=== PATIENT | female | born 1970 | race American Indian/Alaskan Native ===

== ENCOUNTER 2021-11-02 14:58 | Outpatient (CLI) | payer OTHER | END 2021-11-02 14:59 | disposition home or self-care (01) | LOC: SPVWC 14:58 | PROVIDERS: ATTEND Family Medicine | DX: Z12.31 Encounter for screening mammogram for malignant neoplasm of breast (principal) | CPT/HCPCS: 77067 ==

== ENCOUNTER 2022-02-06 13:56 | Outpatient (CLI) | payer OTHER ==
--- NOTE | 2022-02-06 17:57 | Cat Scan Report ---
CT head/brain wo con INDICATION: R51.9 HEADACHE. TECHNIQUE: All CT scans at this location are performed using CT dose reduction for ALARA by means of automated e xposure control. COMPARISON: None available. FINDINGS: There is no evidence of hemorrhage, hydrocephalus, brain edema, or mass effect/mass lesion. There is overall normal brain formation and brain volume for the patient's age. Ventricular and cisternal/sulc al size is normal for age. The included paranasal sinuses and mastoid air cells are clear. The orbits appear unremarkable. IMPRESSION: 1. No acute findings. Signer Name: Abel Short MD Signed: 02/06/2022 5:53 PM Workstation Name: [id number]
== END 2022-02-06 13:57 | disposition home or self-care (01) ==
LOC: CT 13:56
PROVIDERS: ATTEND Family Medicine
DX: R51.9 Headache, unspecified (principal)
CPT/HCPCS: 70450